=== PATIENT | female | born 1955 | race Caucasian/White ===

== ENCOUNTER 2017-12-04 21:02 | Emergency (ER) | payer MEDICARE ==
[~2017-12-04] VITALS: Ht 172.7 cm; Wt 83.9 kg
[2017-12-04 21:17] VITALS: BP_SYST 108
[2017-12-04] MEDS ORDERED: NACL 0.9% 1,000 ML IV ONE (21:41)
[2017-12-04] MEDS ORDERED: ASPIRIN 81 MG TAB.CHEW PO ONE (21:45)
[2017-12-04] MEDS ORDERED: ONDANSETRON HCL 4 MG/2 ML VIAL IVP ONE (21:45)
[2017-12-04 21:54] LABS: BILIRUBIN,URINE NEGATIVE (NEGATIVE); CLARITY/URINE CLEAR (CLEAR); COLOR,URINE YELLOW (YELLOW); GLUCOSE,URINE NEGATIVE (NEGATIVE); KETONES,URINE NEGATIVE (NEGATIVE); LEUKOCYTE ESTERASE ,URINE NEGATIVE (NEGATIVE); NITRITE, URINE NEGATIVE (NEGATIVE); PROTEIN URINE NEGATIVE (NEGATIVE)
[2017-12-04 22:00] LABS: BLOOD, URINE TRACE (NEGATIVE)
[2017-12-04 22:04] LABS: BASOPHILS # (AUTO) 0.1 K/uL (0.0-0.2); BASOPHILS % (AUTO) 1.2 % (0.0-2.0); EOSINOPHILS # (AUTO) 0.2 K/uL (0.0-0.4); HEMATOCRIT 40.5 % (36-48); HEMOGLOBIN 13.6 g/dL (12.0-16.0); LYMPHOCYTES # (AUTO) 1.7 K/uL (1.0-5.5); LYMPHOCYTES % (AUTO) 22.7 % (20.5-51.5); MEAN CORPUSCULAR HEMOGLOBIN 30 pg (27-31); MEAN CORPUSCULAR HGB CONC 34 % (32-36); MEAN CORPUSCULAR VOLUME 90 fL (79.0-98.0); MONOCYTES # (AUTO) 0.7 K/uL (0.0-1.0); MONOCYTES % (AUTO) 8.8 % (1.7-9.3); NEUTROPHILS # (AUTO) 4.7 K/uL (1.8-7.7); NEUTROPHILS % (AUTO) 64.3 % (40.0-70.0); PLATELET COUNT (AUTO) 232 K/uL (130-430); RED BLOOD CELL COUNT(AUTO) 4.53 MIL/uL (4.2-6.2); RED CELL DISTRIBUTION WIDTH 13.5 % (9.0-15.0); WHITE BLOOD COUNT (AUTO) 7.4 K/uL (4.8-10.8)
[2017-12-04 22:21] LABS: BACTERIA,URINE FEW /HPF (None Seen); RBC,URINE 0-3 /HPF (0-3); WBC,URINE 0-3 /HPF (0-3)
[2017-12-04 22:22] LABS: MUCUS,URINE 1+ /LPF (None Seen)
[2017-12-04 22:32] LABS: CALCIUM 8.6 mg/dL (8.4-11.0); CREATININE 0.72 mg/dL (0.55-1.30); POTASSIUM 3.3 mmol/L (3.5-5.1)
[2017-12-04 22:34] LABS: TOTAL BILIRUBIN 0.4 mg/dL (0.0-1.0)
[2017-12-04 22:35] LABS: ALBUMIN 3.4 g/dL (3.4-4.8)
[2017-12-04 22:58] LABS: PROTHROMBIN TIME 10.4 SECS (9.5-12.5)
[2017-12-04 23:19] LABS: INFLUENZA A&B ANTIGEN SCREEN NEGATIVE FOR A & B (NEGATIVE); STREPTOCOCCUS A SCREEN (RAPID) NEGATIVE (NEGATIVE)
[2017-12-04 23:46] VITALS: BP_SYST 112
== END 2017-12-04 23:46 | disposition home or self-care (01) ==
LOC: SED 21:02
DX: K52.9 Noninfective gastroenteritis and colitis, unspecified (principal); G89.29 Other chronic pain; R51 Headache; R53.1 Weakness; M06.9 Rheumatoid arthritis, unspecified
CPT/HCPCS: 36415; 71045; 80053; 81000; 82150; 82550; 83605; 83690; 84484; 85025; 85610; 85730; 86403; 86710; 87040; 87081; 87086; 93005; 96361; 96374; 99285; J2405; J7030

== ENCOUNTER 2019-04-19 14:08 | Emergency (ER) | payer BC, MEDICARE ==
[~2019-04-19] VITALS: Ht 172.7 cm; Wt 86.2 kg
[~2019-04-19 14:08] MED LIST: HYDR-3924 PO; LEVO500T20 PO
[2019-04-19 14:16] VITALS: BP_SYST 140
[2019-04-19] MEDS ORDERED: MECLIZINE HCL 25 MG TABLET (ANITVERT) PO ONE (14:45)
[2019-04-19] MEDS ORDERED: ONDANSETRON HCL 4 MG/2 ML VIAL IVP ONE (14:45)
[2019-04-19] MEDS ORDERED: LORazepam 2 MG/ML VIAL IVP ONE (14:45)
[2019-04-19] MEDS ORDERED: NACL 0.9% 1,000 ML IV ONE (14:45)
[2019-04-19 15:30] LABS: BILIRUBIN,URINE NEGATIVE (NEGATIVE); BLOOD, URINE NEGATIVE (NEGATIVE); CLARITY/URINE CLEAR (CLEAR); COLOR,URINE YELLOW (YELLOW); GLUCOSE,URINE NEGATIVE (NEGATIVE); KETONES,URINE NEGATIVE (NEGATIVE); LEUKOCYTE ESTERASE ,URINE NEGATIVE (NEGATIVE); NITRITE, URINE NEGATIVE (NEGATIVE); PROTEIN URINE NEGATIVE (NEGATIVE); UROBILINOGEN,URINE 0.2 (0.2-1.0)
[2019-04-19 15:46] LABS: ANION GAP 6 (5-15); CALCIUM 9.2 mg/dL (8.4-11.0); CHLORIDE 105 mmol/L (98-107); CREATININE 0.83 mg/dL (0.55-1.30); GLUCOSE 101 mg/dL (70-99); POTASSIUM 4.4 mmol/L (3.5-5.1); SODIUM SERUM 142 mmol/L (136-145); UREA NITROGEN, BLOOD 14 mg/dL (8-21)
[2019-04-19 15:49] LABS: PROTHROMBIN TIME 9.8 SECS (9.5-12.5)
[2019-04-19 15:50] LABS: GFR AFRICAN AMERICAN 90 mL/min (>90)
[2019-04-19 15:51] LABS: BARBITURATE, URINE NEGATIVE (NEG <=200); BENZODIAZEPINE, URINE NEGATIVE (NEG <=150); CANNABINOID, URINE NEGATIVE (NEG <=50); COCAINE, URINE NEGATIVE (NEG <=150); METHAMPHETAMINES SCREEN,URINE NEGATIVE (NEG <=500); OPIATE, URINE POSITIVE (NEG <=100); PHENCYCLIDINE SCREEN,URINE NEGATIVE (NEG <=25); UR TRICYCLIC ANTIDEPRESSANTS NEGATIVE (NEG <=300); URINE AMPHETAMINE NEGATIVE (NEG <=500); URINE METHADONE NEGATIVE (NEG <=200); URINE OXYCODONE SCREEN NEGATIVE (NEG <=100); URINE PROPOXYPHENE SCREEN NEGATIVE (NEG <=300)
[2019-04-19 15:53] LABS: BASOPHILS # (AUTO) 0.1 K/uL (0.0-0.2); BASOPHILS % (AUTO) 1.4 % (0.0-2.0); EOSINOPHILS # (AUTO) 0.2 K/uL (0.0-0.4); EOSINOPHILS % (AUTO) 2.3 % (0.0-4.0); HEMATOCRIT 43.8 % (36-48); HEMOGLOBIN 14.7 g/dL (12.0-16.0); LYMPHOCYTES # (AUTO) 1.7 K/uL (1.0-5.5); LYMPHOCYTES % (AUTO) 18.6 % (20.5-51.5); MEAN CORPUSCULAR HEMOGLOBIN 30 pg (27-31); MEAN CORPUSCULAR HGB CONC 34 % (32-36); MEAN CORPUSCULAR VOLUME 89 fL (79.0-98.0); MONOCYTES # (AUTO) 0.6 K/uL (0.0-1.0); NEUTROPHILS # (AUTO) 6.5 K/uL (1.8-7.7); NEUTROPHILS % (AUTO) 70.7 % (40.0-70.0); PLATELET COUNT (AUTO) 267 K/uL (130-430); RED BLOOD CELL COUNT(AUTO) 4.94 MIL/uL (4.2-6.2); RED CELL DISTRIBUTION WIDTH 13.5 % (9.0-15.0); WHITE BLOOD COUNT (AUTO) 9.2 K/uL (4.8-10.8)
[2019-04-19 16:03] LABS: ALANINE AMINOTRANSFERASE 51 U/L (12-78); ALBUMIN 3.8 g/dL (3.4-4.8); ASPARTATE AMINOTRANSFERASE 32 U/L (10-37); FREE T4 (FREE THYROXINE) 0.8 ng/dL (0.6-1.6); TOTAL BILIRUBIN 0.3 mg/dL (0.0-1.0)
[2019-04-19 16:07] LABS: ALCOHOL, BLOOD < 3 mg/dL (<10)
[2019-04-19] MEDS ORDERED: KETOROLAC TROMETHAMINE 30 MG VIAL IVP ONE (17:15)
[2019-04-19 17:52] VITALS: BP_SYST 127
== END 2019-04-19 17:52 | disposition home or self-care (01) ==
LOC: SED 14:08
DX: R42 Dizziness and giddiness (principal); Z79.899 Other long term (current) drug therapy
CPT/HCPCS: 36415; 70450; 71045; 74018; 80053; 80307; 81003; 82140; 83605; 83880; 84439; 84484; 85025; 85610; 87040; 93005; 96361; 96374; 96375; 99284; G0482; J1885; J2060; J2405; J7030; J8597

== ENCOUNTER 2020-05-05 18:59 | Emergency (ER) | payer BC ==
[~2020-05-05] VITALS: Ht 172.7 cm; Wt 81.6 kg
[2020-05-05 19:05] VITALS: BP_SYST 152
--- NOTE | 2020-05-05 19:13 | NUR ---
Patient to ER bed 07 to gown for evaluation. Side rails up.
--- NOTE | 2020-05-05 19:14 | NUR ---
Pt brought by self, A&Ox4, pt presents to ER with abdominal pain, dizziness, nausea and vomiting since today, skin pink and warm, cap refill <3, VSS, respirations even and unlabored,will cont to monitor
--- NOTE | 2020-05-05 19:40 | NUR ---
Dr Aguilar evaluating patient at bedside
[2020-05-05] MEDS ORDERED: ONDANSETRON HCL 4 MG/2 ML VIAL IVP ONE (19:45)
[2020-05-05] MEDS ORDERED: NACL 0.9% 1,000 ML IV ONE (19:45)
[2020-05-05] MEDS ORDERED: KETOROLAC TROMETHAMINE 30 MG VIAL IVP ONE (19:45)
[2020-05-05 20:03] LABS: BASOPHILS # (AUTO) 0.1 K/uL (0.0-0.2); BASOPHILS % (AUTO) 1.5 % (0.0-2.0); EOSINOPHILS # (AUTO) 0.2 K/uL (0.0-0.4); HEMATOCRIT 40.7 % (36-48); HEMOGLOBIN 13.8 g/dL (12.0-16.0); LYMPHOCYTES # (AUTO) 1.3 K/uL (1.0-5.5); LYMPHOCYTES % (AUTO) 19.7 % (20.5-51.5); MEAN CORPUSCULAR HEMOGLOBIN 30 pg (27-31); MEAN CORPUSCULAR HGB CONC 34 % (32-36); MEAN CORPUSCULAR VOLUME 89 fL (79.0-98.0); MONOCYTES # (AUTO) 0.4 K/uL (0.0-1.0); MONOCYTES % (AUTO) 6.3 % (1.7-9.3); NEUTROPHILS # (AUTO) 4.7 K/uL (1.8-7.7); NEUTROPHILS % (AUTO) 69.5 % (40.0-70.0); PLATELET COUNT (AUTO) 225 K/uL (130-430); RED BLOOD CELL COUNT(AUTO) 4.58 MIL/uL (4.2-6.2); RED CELL DISTRIBUTION WIDTH 13.7 % (9.0-15.0); WHITE BLOOD COUNT (AUTO) 6.7 K/uL (4.8-10.8)
[2020-05-05 20:17] LABS: CALCIUM 8.6 mg/dL (8.4-11.0); CREATININE 0.75 mg/dL (0.55-1.30)
[2020-05-05 20:23] LABS: ALBUMIN 3.7 g/dL (3.4-4.8); TOTAL BILIRUBIN 0.4 mg/dL (0.0-1.0)
[2020-05-05] MEDS ORDERED: PROCHLORPERAZINE EDISYLATE 10 MG/2 ML VIAL IVP ONE (21:00)
[2020-05-05] MEDS ORDERED: MECLIZINE HCL 25 MG TABLET (ANITVERT) PO ONE (21:00)
--- NOTE | 2020-05-05 21:04 | NUR ---
Pt A&Ox4, no N/V noted, respirations even and unlabored.
[2020-05-05 22:11] VITALS: BP_SYST 148
--- NOTE | 2020-05-05 22:13 | NUR ---
Patient given written and verbal discharge instructions and verbalizes understanding. ER MD discussed with patient the results and treatment provided. Patient in stable condition. ID arm band removed. Rx of Meclizine given. Patient educated on pain management and to follow up with PMD. Pain Scale 0/10. Opportunity for questions provided and answered. Medication side effect fact sheet provided.
== END 2020-05-05 22:11 | disposition home or self-care (01) ==
LOC: SED 18:59
DX: R42 Dizziness and giddiness (principal); R11.0 Nausea; Z90.710 Acquired absence of both cervix and uterus; Z85.42 Personal history of malignant neoplasm of other parts of uterus
CPT/HCPCS: 36415; 70450; 74176; 80053; 81002; 85025; 93005; 96361; 96374; 96375; 99285; J0780; J1885; J2405; J7030; J8597

== ENCOUNTER 2022-09-02 07:38 | Emergency (ER) | payer MEDICARE, BC ==
[~2022-09-02] VITALS: Ht 172.7 cm; Wt 79.4 kg
[~2022-09-02 07:38] MED LIST changes: -HYDR-3924 PO; +HYDR-4497 PO
[2022-09-02 07:46] VITALS: BP_SYST 125
--- NOTE | 2022-09-02 07:50 | NUR ---
Patient triaged and placed in waiting room. VSS and patient appears in no acute distress at this time. Accompanied by SELF, awaiting available bed, and MD notified of need for MSE.
--- NOTE | 2022-09-02 08:02 | NUR ---
DR JULIAN OUT TO TRIAGE ROOM FOR EVALUATION
--- NOTE | 2022-09-02 08:05 | NUR ---
PT STATES LAST 5 DAYS WITH COUGH, CONGESTION, FATIGUE, FEVERS AND JUST FEELING MISERABLE. PT IS NOT VACCINATED FOR COVID, PT HAS NOT TESTED FOR COVID
--- NOTE | 2022-09-02 09:10 | NUR ---
AWAITING TESTING RESULTS
--- NOTE | 2022-09-02 11:01 | NUR ---
DR JULIAN OUT TO TRIAGE ROOM TO EVALUATE PT.
[2022-09-02] MEDS ORDERED: ALBMDI INH (11:05)
[2022-09-02] MEDS ORDERED: LEVO-62 PO (11:05)
--- NOTE | 2022-09-02 11:19 | NUR ---
Patient given written and verbal discharge instructions and verbalizes understanding. ER MD discussed with patient the results and treatment provided. Patient in stable condition. ID arm band removed. Rx of LEVAQUIN, VENTOLIN INHALER given. Patient educated on pain management and to follow up with PMD. Pain Scale 0/10. Opportunity for questions provided and answered. Medication side effect fact sheet provided.
== END 2022-09-02 11:19 | disposition home or self-care (01) ==
LOC: SED 07:38
DX: J18.9 Pneumonia, unspecified organism (principal); R05.9 Cough, unspecified; R09.81 Nasal congestion; R06.02 Shortness of breath; Z79.899 Other long term (current) drug therapy; Z20.822 Contact with and (suspected) exposure to COVID-19
CPT/HCPCS: 36415; 71045; 99284